=== PATIENT | female | born 1945 | race Caucasian/White ===

== ENCOUNTER 2017-05-10 12:03 | Emergency (ER) | payer MEDICARE, OTHER ==
[~2017-05-10] VITALS: Ht 162.6 cm; Wt 65.8 kg
== END 2017-05-10 12:38 | disposition short-term general hospital (02) ==
LOC: ER 12:03
DX: S50.11XA Contusion of right forearm, initial encounter (principal); W22.8XXA Striking against or struck by other objects, initial encounter; Y92.69 Other specified industrial and construction area as the place of occurrence of the external cause; Y99.0 Civilian activity done for income or pay